=== PATIENT | male | born 1935 | race Caucasian/White ===

== ENCOUNTER 2016-09-13 11:21 | Day surgery (SDC) | payer OTHER ==
[2016-09-13] MEDS ORDERED: DIAZEPAM 5 MG TAB PO ONE (11:27)
[2016-09-13] MEDS ORDERED: FAMOTIDINE 20 MG TAB PO ONE (11:27)
[2016-09-13] MEDS ORDERED: diphenhydrAMINE 25 MG CAP PO ONE ×2 (11:27→12:00)
[2016-09-13] MEDS ORDERED: ASPIRIN EC 325 MG TAB PO ONE ×2 (11:27→12:00)
[2016-09-13] MEDS ORDERED: NS 1,000 ML IV ONE (11:27)
[2016-09-13] MEDS ORDERED: FAMOTIDINE 20 MG TAB ONE (12:00)
[2016-09-13] MEDS ORDERED: DIAZEPAM 5 MG TAB ONE (12:00)
--- NOTE | 2016-09-13 12:04 | CPEKG ---
Heart Rate: 62 RR Interval: 968 P-R Interval: 184 QRSD Interval: 82 QT Interval: 416 QTC Interval: 423 P [place]: 67 QRS [place]: 32 T Wave [place]: 90 EKG Severity - NORMAL ECG - EKG Impression: SINUS RHYTHM EKG Impression: RIGHT ATRIAL ENLARGEMENT EKG Impression: ST DEPRESSION LATERAL LEADS, CONSIDER LATERAL ISCHEMIA. Electronically Signed By: Jamison Sanches 14-Sep-2016 06:33:38
[2016-09-13 12:05] LABS: % IMMATURE GRANULYOCYTES 0.5 % (0.0-1.1); ABSOLUTE IMMATURE GRANULOCYTES 0.03 10^3/uL (0.00-0.10); ADD DIFF? NO; ADD MORPH? NO; ADD SCAN? NO; ATYPICAL LYMPHOCYTE FLAG 10 (0-99); FRAGMENT RBC FLAG 0 (0-99); HEMATOCRIT 41.6 % (40.0-51.0); HEMOGLOBIN 14.5 g/dL (13.7-17.5); LEFT SHIFT FLG 10 (0-99); LIPEMIA HEMOLYSIS FLAG 90 (0-99); MEAN CELL HEMOGLOBIN CONCENTR. 34.9 g/dL (32.4-36.7); MEAN CELL VOLUME 97.7 fL (81.5-99.8); PLATELET CLUMPS FLAG 30 (0-99); PLATELET COUNT 146 10^3/uL (150-400); RED BLOOD CELL COUNT 4.26 10^6/uL (4.40-6.38)
[2016-09-13 12:21] LABS: INR 1.16 (0.83-1.16); PROTIME(PATIENT) 14.8 SEC (12.0-15.0)
[2016-09-13 12:23] LABS: ANION GAP 8 mEq/L (8-16); CALCIUM 10.1 mg/dL (8.5-10.4); CARBON DIOXIDE 27 mEq/l (22-31); CHLORIDE 102 mEq/L (97-110); CHOLESTEROL 121 mg/dL (140-220); CHOLESTEROL/HDL RATIO 2.47 RATIO (1.00-4.97); CREATININE 1.1 mg/dL (0.7-1.3); GLOMERULAR FILTRATION RATE > 60; GLUCOSE 92 mg/dL (70-100); HIGH DENSITY LIPOPROTEIN 49 mg/dL (40-65); LDL/HDL RATIO 1.16 RATIO (1.00-3.64); LOW DENSITY LIPOPROTEIN 57 mg/dL (80-100); MAGNESIUM 2.1 mg/dL (1.6-2.3); NON-HIGH DENSITY LIPOPROTEIN 72 mg/dL (90-129); POTASSIUM 5.3 mEq/L (3.5-5.2); SODIUM 137 mEq/L (134-144); TRIGLYCERIDE 78 mg/dL (40-150); VERY LOW DENSITY LIPOPROTEINS 15 mg/dL (8-25)
[2016-09-13] MEDS ORDERED: LIDOCAINE 1% 30 ML SDV ONE (13:07)
[2016-09-13] MEDS ORDERED: fentaNYL 100 MCG/2 ML INJ ONE (13:08)
[2016-09-13] MEDS ORDERED: MIDAZOLAM 2 MG/2 ML VIAL ONE (13:08)
[2016-09-13] MEDS ORDERED: IOPAMIDOL (ISOVUE-370) 150 ML BTL IV ONE (13:08)
--- NOTE | 2016-09-13 14:04 | PDDXCAT ---
Diagnostic Cath Note - . Date: 09/13/16 Certified Registered Nurse Anesthetist: Guerrero Indication: CCC Class III and IV angina on medical treatment - Procedure Access: right groin Procedure: left heart catheterization, coronary angiography - Materials Left Heart Cath size: 6F Left Heart Cath materials: standard multipack (JL4, JR4, pigtail) - Findings-Left Heart Catheterization LM: Unobstructed LAD: 90% proximal occlusion LCX: 80% 1st OM RCA: 100% occlusion. 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 Plan: Recommend coronary artery bypass grafting with aggressive medical therapy. Patient Problems: Problems Problem Status Onset Coronary artery disease Acute Stented coronary artery Acute
[2016-09-13] MEDS ORDERED: ATROPINE SULFATE 1 MG/10 ML SYR ONE (14:16)
[2016-09-13] MEDS ORDERED: OXYCODONE/APAP 5/325 TAB PO PRN (15:38)
[2016-09-13] MEDS ORDERED: HYDROCODONE/APAP 5/325 TAB PO PRN (15:38)
[2016-09-13] MEDS ORDERED: ONDANSETRON 4 MG/2 ML VIAL IVP PRN (15:38)
[2016-09-13] MEDS ORDERED: ATROPINE SULFATE 1 MG/10 ML SYR IVP PRN (15:38)
[2016-09-13] MEDS ORDERED: NITROGLYCERIN 0.4 MG BTL SL PRN (15:38)
== END 2016-09-13 19:11 | disposition home or self-care (01) ==
LOC: FCATH 11:21
PROVIDERS: ATTEND Internal Medicine Interventional Cardiology
PROC: 4A023N7 Measurement of Cardiac Sampling and Pressure, Left Heart, Percutaneous Approach (ICD-10-PCS; principal; 2016-09-13)
PROC: B2111ZZ Fluoroscopy of Multiple Coronary Arteries using Low Osmolar Contrast (ICD-10-PCS; principal; 2016-09-13)
DX: I25.82 Chronic total occlusion of coronary artery (principal); I25.119 Atherosclerotic heart disease of native coronary artery with unspecified angina pectoris; E78.5 Hyperlipidemia, unspecified; Z95.5 Presence of coronary angioplasty implant and graft
CPT/HCPCS: J0461; J1644; J2250; J3010; Q9967

== ENCOUNTER → 2016-09-20 | Outpatient (CLI) | payer OTHER | LOC: BHFA 10:45 | PROVIDERS: ATTEND Internal Medicine Cardiovascular Disease | DX: Z01.810 Encounter for preprocedural cardiovascular examination (principal); I25.10 Atherosclerotic heart disease of native coronary artery without angina pectoris ==

== ENCOUNTER → 2016-10-05 | Outpatient (CLI) | payer OTHER | LOC: FIMAGING 13:42 | PROVIDERS: ATTEND Thoracic Surgery (Cardiothoracic Vascular Surgery) | DX: J90 Pleural effusion, not elsewhere classified (principal); J98.11 Atelectasis; R93.6 Abnormal findings on diagnostic imaging of limbs; Z95.1 Presence of aortocoronary bypass graft; Z95.5 Presence of coronary angioplasty implant and graft ==

== ENCOUNTER → 2016-10-12 | Outpatient (CLI) | payer OTHER | LOC: FIMAGING 11:25 | PROVIDERS: ATTEND Thoracic Surgery (Cardiothoracic Vascular Surgery) | DX: Z86.79 Personal history of other diseases of the circulatory system (principal); J90 Pleural effusion, not elsewhere classified ==

== ENCOUNTER → 2016-10-29 | Outpatient (CLI) | payer OTHER | LOC: FIMAGING 12:56 | PROVIDERS: ATTEND Thoracic Surgery (Cardiothoracic Vascular Surgery) | DX: Z98.890 Other specified postprocedural states (principal); Z95.1 Presence of aortocoronary bypass graft ==

== ENCOUNTER → 2016-11-09 | Outpatient (CLI) | payer OTHER | LOC: FIMAGING 10:07 | PROVIDERS: ATTEND Thoracic Surgery (Cardiothoracic Vascular Surgery) | DX: Z09 Encounter for follow-up examination after completed treatment for conditions other than malignant neoplasm (principal); Z95.828 Presence of other vascular implants and grafts ==

== ENCOUNTER → 2018-02-20 | Outpatient (CLI) | payer OTHER | LOC: BHFA 11:15 | PROVIDERS: ATTEND Internal Medicine Interventional Cardiology | DX: R07.89 Other chest pain (principal); R53.83 Other fatigue; I25.10 Atherosclerotic heart disease of native coronary artery without angina pectoris ==